=== PATIENT | male | born 1965 | race Caucasian/White ===

== ENCOUNTER 2019-11-16 09:47 | Emergency (ER) | payer OTHER ==
[2019-11-16] MEDS ORDERED: Sodium Chloride 0.9% 1000 ML 1,000 ML IV STA (09:56)
[2019-11-16] MEDS ORDERED: Sodium Chloride 0.9% 1000 ML 1,000 ML ONE (10:04)
[2019-11-16] MEDS ORDERED: Ativan 2 MG/1 ML VIAL IV ONE (10:07)
[2019-11-16] MEDS ORDERED: Ativan 2 MG/1 ML VIAL ONE (10:13)
--- NOTE | 2019-11-16 10:17 | XRAY ---
Indication: Short of breath. Dizziness. Comparison: None Portable chest demonstrates normal heart, lungs, and bony thorax.
--- NOTE | 2019-11-16 10:37 | ERPHSYRPT ---
- History of Present Illness Time Seen by Provider: 11/16/19 10:00 Patient Subjective Stated Complaint: Pt states "I do not go to the doctor very often. For the past few years I have been getting dizzy spells and having night sweats. For the past 3 days It has gotten really bad. I am weak and my belly hurts." Triage Nursing Assessment: Pt presented alert and oriented X 3, skin pwd Pt ambulates with an upright steady gait, able to speak in clear full sentences pt in no apparent respiratory distress. Pt anxious. Physician History: Patient is a 54-year-old male who presents with a multitude of signs and symptoms. He says that he has been having problems for 2 years worse the last 3 days. He says he has been dizzy associated with vertigo and spinning he has vi sual changes which get dark prior to syncopal episodes that occur fairly frequently he falls down estimates his loss of consciousness time to be several minutes. He complains of shortness of breath chest pain headache and abdominal pain he has had some nausea and vomiting recently his vision also becomes blurred at times. He is diagnosed as bipolar or manic depressive. Witnessed: unwitnessed Timing/Duration: day(s) (3) Precipitating Factors: blurred vision, lightheadedness, nausea Loss of Consciousness: prolonged (minutes) Charcter of event(s): collapsed Allergies/Adverse Reactions: No Known Drug Allergies Allergy (Verified 11/16/19 09:57) Hx Tetanus, Diphtheria Vaccination/Date Given: No Hx Influenza Vaccination/Date Given: No Hx Pneumococcal Vaccination/Date Given: No Immunizations Up to Date: Yes Travel Risk - International Travel Have you traveled outside of the country in past 3 weeks: No - Coronavirus Screening Are you exhibiting any of the following symptoms?: No Close contact with a COVID-19 positive Pt in past 14-21 Days: No - Past Medical History Pertinent Past Medical History: Yes Psycho-Social History: Anxiety, Depression - Past Surgical History Past Surgical History: Yes Gastrointestinal: Appendectomy - Social History Smoking Status: Former smoker Exposure to second hand smoke: Yes Drug Use: none Patient Lives Alone: Yes - Review of Systems Constitutional: Night Sweats Eyes: Vision Changes Ears, Nose, & Throat: No Symptoms Respiratory: Dyspnea, Dyspnea on Exertion (OLIVO) Cardiac: Chest Pain, Syncope Abdominal/Gastrointestinal: Abdominal Pain, Nausea, Vomiting Genitourinary Symptoms: No Dysuria Skin: No Rash Neurological: Dizziness, Headache, Irritability, Sensory Changes, Vertigo Psychological: Anxiety Endocrine: No Symptoms Hematologic/Lymphatic: No Symptoms Immunological/Allergic: No Symptoms All Other Systems: Reviewed and Negative Physical Exam - Nursing Vital Signs Nursing Vital Signs: Initial Vital Signs Temperature 65.3 F 11/16/19 09:47 Pulse Rate 80 11/16/19 09:47 Respiratory Rate 24 11/16/19 09:47 Blood Pressure 152/82 11/16/19 09:47 O2 Sat by Pulse Oximetry 100 11/16/19 09:47 Pain Scale Pain Intensity 1 - [place] Coma Scale Best Eye Response ([place]): (4) open spontaneously Best Verbal Response ([place]): (5) oriented Best Motor Response ([place]): (6) obeys commands [place] Total: 15 - Physical Exam General Appearance: mild distress, anxiety, other (Seems tremulous and extremely anxious) Eye Exam: bilateral eye: PERRL, EOMI Ears, Nose, Throat Exam: normal ENT inspection, pharynx normal, moist mucous membranes Neck Exam: normal inspection, non-tender, supple, full range of motion Respiratory: normal breath sounds, lungs clear, No chest tenderness, No respiratory distress Cardiovascular: regular rate/rhythm, capillary refill <2 sec, No murmur, No pulse deficit Gastrointestinal: soft, No tenderness, No distention, No mass Back Exam: normal inspection, normal range of motion, No CVA tenderness, No vertebral tenderness Extremity Exam: normal inspection, normal range of motion, pelvis stable, No tenderness Peripheral Pulses: carotid (R): 2+, carotid (L): 2+ Mental Status: alert, oriented x 3, 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, 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 Exam: normal speech, PERRL, No facial droop Coordination/Gait: normal finger to nose Motor/Sensory: no motor deficit, no sensory deficit, no pronator drift Skin Exam: normal color, warm, dry, No rash SpO2 Interpretation: normal SpO2: 100 O2 Delivery: Room Air - Course Nursing assessment & vital signs reviewed: Yes EKG Interpreted by Me: RATE (56), Sinus Rhythm, NORMAL AXIS, NORMAL INTERVALS, NORMAL QRS - Radiology Exams Chest X-ray Interpretation: Reviewed by me, Negative - CT Exams Chest CT Interpretation: Other (T scan of the head chest abdomen and pelvis are all basically free of any acute changes or findings.) Ordered Tests: Active Orders 24 hr Category Date Time Status EKG-ER Only STAT Care 11/16/19 09:52 Active IV Insertion STAT Care 11/16/19 09:52 Active ABDOMEN AND PELVIS W CONTRAST [CT] Stat Exams 11/16/19 09:57 Completed CHEST 1 VIEW (PORTABLE) Stat Exams 11/16/19 09:53 Completed CHEST WITH CONTRAST [CT] Stat Exams 11/16/19 09:57 Completed HEAD WITHOUT CONTRAST [CT] Stat Exams 11/16/19 09:57 Completed AMYLASE Stat Lab 11/16/19 09:52 Completed BLOOD CULTURE Stat Lab 11/16/19 10:35 Received CBC W DIFF Stat Lab 11/16/19 09:52 Completed CK-Creatinine Phosphokinase Stat Lab 11/16/19 09:52 Completed CMP Stat Lab 11/16/19 09:52 Completed D-DIMER QUANTITATIVE Stat Lab 11/16/19 09:52 Completed LIPASE Stat Lab 11/16/19 09:52 Completed Lactic Acid Stat Lab 11/16/19 09:52 Completed NT PRO BNP Stat Lab 11/16/19 09:52 Completed PROTIME WITH INR Stat Lab 11/16/19 09:52 Completed TROPONIN Q3H Lab 11/16/19 10:35 Completed TROPONIN Q3H Lab 11/16/19 13:00 Ordered TROPONIN Q3H Lab 11/16/19 16:00 Ordered TROPONIN Q3H Lab 11/16/19 19:00 Ordered TROPONIN Q3H Lab 11/16/19 22:00 Ordered UA W/RFX UR CULTURE Stat Lab 11/16/19 12:00 Ordered Medication Summary Discontinued Medications Generic Name Dose Route Start Last Admin Trade Name Jadenq PRN Reason Stop Dose Admin Sodium Chloride 1,000 mls @ 999 mls/hr 11/16/19 09:56 11/16/19 11:29 Sodium Chloride 0.9% 1000 Ml IV 11/16/19 10:56 Infused .Q1H1M STA Infusion Sodium Chloride Confirm 11/16/19 10:04 Sodium Chloride 0.9% 1000 Ml Administered 11/16/19 10:05 Dose 1,000 mls @ ud .ROUTE .STK-MED ONE Lorazepam 1 mg 11/16/19 10:07 11/16/19 10:14 Ativan 2 Mg/1 Ml Vial IV 11/16/19 10:08 1 mg STAT ONE Administration Lorazepam Confirm 11/16/19 10:13 Ativan 2 Mg/1 Ml Vial Administered 11/16/19 10:14 Dose 2 mg .ROUTE .STK-MED ONE Lab/Rad Data: Laboratory Result Diagrams 11/16/19 09:52 11/16/19 09:52 Laboratory Results 11/16/19 11/16/19 11/16/19 Range/Units 10:35 09:52 09:52 WBC (4.0-10.5) K/mm3 RBC (4.1-5.6) M/mm3 Hgb (12.5-18.0) gm/dl Hct (42-50) % MCV (78-100) fl MCH (26-32) pg MCHC (32-36) g/dl RDW (11.5-14.0) % Plt Count (150-450) K/mm3 MPV (7.5-11.0) fl Gran % (36.0-66.0) % Eos # (Auto) (0-0.5) Absolute Lymphs (auto) (1.0-4.6) Absolute Monos (auto) (0.0-1.3) Lymphocytes % (24.0-44.0) % Monocytes % (0.0-12.0) % Eosinophils % (0.00-5.0) % Basophils % (0.0-0.4) % Absolute Granulocytes (1.4-6.9) Basophils # (0-0.4) PT 11.0 (8.83-12.87) SECONDS INR 0.97 (0.8-3.0) D-Dimer 216 (215-500) ng/mL Sodium 138 (137-145) mmol/L Potassium 4.1 (3.5-5.1) mmol/L Chloride 103 (98-107) mmol/L Carbon Dioxide 27 (22-30) mmol/L Anion Gap 11.9 (5-15) MEQ/L BUN 10 (9-20) mg/dL Creatinine 1.05 (0.66-1.25) mg/dL Estimated GFR > 60.0 ML/MIN Glucose 106 (74-106) mg/dL Lactic Acid (0.4-2.0) Calcium 9.2 (8.4-10.2) mg/dL Total Bilirubin 0.70 (0.2-1.3) mg/dL AST 33 (17-59) U/L ALT 30 (0-50) U/L Alkaline Phosphatase 92 (38-126) U/L Creatine Kinase 65 (55-170) U/L Troponin I < 0.012 (0.000-0.034) ng/mL NT-Pro-B Natriuret Pep 28.7 (0-900) pg/mL Serum Total Protein 7.5 (6.3-8.2) g/dL Albumin 4.5 (3.5-5.0) g/dL Amylase 99 (30-110) U/L Lipase 166 (23-300) U/L 11/16/19 11/16/19 Range/Units 09:52 09:52 WBC 5.2 (4.0-10.5) K/mm3 RBC 5.28 (4.1-5.6) M/mm3 Hgb 16.7 (12.5-18.0) gm/dl Hct 49.1 (42-50) % MCV 93.0 (78-100) fl MCH 31.6 (26-32) pg MCHC 34.0 (32-36) g/dl RDW 12.3 (11.5-14.0) % Plt Count 185 (150-450) K/mm3 MPV 12.3 H (7.5-11.0) fl Gran % 48.7 (36.0-66.0) % Eos # (Auto) 0.18 (0-0.5) Absolute Lymphs (auto) 1.87 (1.0-4.6) Absolute Monos (auto) 0.60 (0.0-1.3) Lymphocytes % 36.0 (24.0-44.0) % Monocytes % 11.6 (0.0-12.0) % Eosinophils % 3.5 (0.00-5.0) % Basophils % 0.2 (0.0-0.4) % Absolute Granulocytes 2.53 (1.4-6.9) Basophils # 0.01 (0-0.4) PT (8.83-12.87) SECONDS INR (0.8-3.0) D-Dimer (215-500) ng/mL Sodium (137-145) mmol/L Potassium (3.5-5.1) mmol/L Chloride (98-107) mmol/L Carbon Dioxide (22-30) mmol/L Anion Gap (5-15) MEQ/L BUN (9-20) mg/dL Creatinine (0.66-1.25) mg/dL Estimated GFR ML/MIN Glucose (74-106) mg/dL Lactic Acid 1.7 (0.4-2.0) Calcium (8.4-10.2) mg/dL Total Bilirubin (0.2-1.3) mg/dL AST (17-59) U/L ALT (0-50) U/L Alkaline Phosphatase (38-126) U/L Creatine Kinase (55-170) U/L Troponin I (0.000-0.034) ng/mL NT-Pro-B Natriuret Pep (0-900) pg/mL Serum Total Protein (6.3-8.2) g/dL Albumin (3.5-5.0) g/dL Amylase (30-110) U/L Lipase (23-300) U/L - Progress Progress: improved - Departure Departure Disposition: Home Clinical Impression: Syncope, Anxiety Condition: Stable Critical Care Time: No Referrals: DOCTOR,NO FAMILY [Primary Care Provider] - Instructions: Syncope (Fainting) (DC), Anxiety, Adult (DC) Prescriptions: Paroxetine HCl [Paroxetine ER] 25 mg PO DAILY 30 Days #30 tab.er.24h
[2019-11-16 10:52] LABS: Absolute Neutrophil Ct (ANC) 2.53 (1.4-6.9); BASOPHIL % 0.2 % (0.0-0.4); Basophil (Absolute #) 0.01 (0-0.4); Eosinophil % 3.5 % (0.00-5.0); Eosinophil (Absolute #) 0.18 (0-0.5); Hematocrit 49.1 % (42-50); Hemoglobin 16.7 gm/dl (12.5-18.0); Lymphocyte (Absolute #) 1.87 (1.0-4.6); Mean Corpuscular Hemoglobin 31.6 pg (26-32); Mean Platelet Volume 12.3 fl (7.5-11.0); Monocytes % 11.6 % (0.0-12.0); Neutrophil % 48.7 % (36.0-66.0); Platelet Count 185 K/mm3 (150-450); Red Blood Count 5.28 M/mm3 (4.1-5.6); Red Cell Distribution Width 12.3 % (11.5-14.0); White Blood Count 5.2 K/mm3 (4.0-10.5)
[2019-11-16 10:58] LABS: INR 0.97 (0.8-3.0)
[2019-11-16 11:12] LABS: ALBUMIN 4.5 g/dL (3.5-5.0); ALKALINE PHOSPHATASE 92 U/L (38-126); AMYLASE 99 U/L (30-110); ANION GAP 11.9 MEQ/L (5-15); BLOOD UREA NITROGEN 10 mg/dL (9-20); CHLORIDE 103 mmol/L (98-107); CK-Creatinine Phosphokinase 65 U/L (55-170); Calcium 9.2 mg/dL (8.4-10.2); Carbon Dioxide 27 mmol/L (22-30); Creatinine 1 1.05 mg/dL (0.66-1.25); Glucose 106 mg/dL (74-106); LIPASE 166 U/L (23-300); NT PRO BNP 28.7 pg/mL (0-900); Potassium 4.1 mmol/L (3.5-5.1); SGOT/AST 33 U/L (17-59); SGPT/ALT 30 U/L (0-50); SODIUM 138 mmol/L (137-145); Total Protein 7.5 g/dL (6.3-8.2)
--- NOTE | 2019-11-16 12:06 | XRAY ---
Indication: Headache, dizziness, vertigo. Multiple contiguous images obtained through the head without contrast. Comparison: None Age-appropriate global atrophy and minimal periventricular degenerative micro-ischemia bilaterally. No acute intracranial hemorrhage, abnormal extra-axial fluid collection, or mass effect. Fourth ventricle is midline without hydrocephalus. Sue-white matter differentiation preserved. Bony calvarium intact. Visualized paranasal sinuses and mastoid air cells are clear. Impression: Atrophy and degenerative micro-ischemia within normal limits for patient's age. No acute intracranial abnormalities.
--- NOTE | 2019-11-16 12:08 | XRAY ---
Indication: Chest pain, short of breath, and weakness. Multiple contiguous axial images obtained through the chest using 100 cc Isovue 370 contrast. Comparison: None Lungs demonstrates mild bilateral dependent atelectasis and minimal bibasilar fibrosis/scarring. Remaining lungs clear. Heart is not enlarged. Aorta is normal in course and caliber. No pathologic mediastinal/hilar lymphadenopathy. Bony thorax intact with multilevel small Schmorl nodes. CT abdomen/pelvis reported separately. Impression: Negative CT chest with contrast exam with incidental findings.
--- NOTE | 2019-11-16 12:12 | XRAY ---
Indication: Abdomen pain, nausea, vomiting, diarrhea. Multiple contiguous axial images obtained through the abdomen and pelvis using 100 cc Isovue 370 contrast only. Comparison: None CT chest reported separately. The delayed images are degraded by respiration/motion artifact throughout. Noncontrasted stomach and bowel loops appear nonobstructed. Appendix not seen. No free fluid/air. Mild diffuse fatty liver. Remaining liver, gallbladder, pancreas, spleen, adrenal glands, kidneys, ureters, bladder, and aorta appear unremarkable. No pathologic retroperitoneal lymphadenopathy. Osseous structures intact. No ventral or inguinal hernias. Impression: 1. Respiration and motion artifact. 2. Mild fatty liver. 3. Remaining CT abdomen/pelvis with contrast exam is negative.
[2019-11-16 12:30] VITALS: BP 114/87; PULSE 80; O2SAT 98
[2019-11-16 13:01] LABS: Appearance CLEAR (CLEAR); Bilirubin NEGATIVE (NEGATIVE); Blood NEGATIVE Ery/ul (0-5); Glucose NEGATIVE (NEGATIVE); Ketones NEGATIVE (NEGATIVE); Leukocyte Esterase NEGATIVE (NEGATIVE); Nitrite NEGATIVE (NEGATIVE); Protein,Urine Dip NEGATIVE (Negative); Specific Gravity 1.011 (1.005-1.025); Urobilinogen NEGATIVE mg/dL (0-1)
== END 2019-11-16 13:00 | disposition home or self-care (01) ==
LOC: ED 09:47
DX: R55 Syncope and collapse (principal); F41.9 Anxiety disorder, unspecified; F32.9 Major depressive disorder, single episode, unspecified
CPT/HCPCS: 36000; 36415; 70450; 71045; 71260; 74177; 80053; 81001; 82150; 82550; 83605; 83690; 83880; 84484; 85025; 85379; 85610; 87040; 93005; 96360; 96374; 99284; J2060

== ENCOUNTER 2020-02-11 22:52 | Emergency (ER) | payer OTHER ==
[2020-02-11 23:17] LABS: Absolute Neutrophil Ct (ANC) 4.46 (1.4-6.9); BASOPHIL % 0.2 % (0.0-0.4); Basophil (Absolute #) 0.01 (0-0.4); Eosinophil (Absolute #) 0 (0-0.5); Hematocrit 39.9 % (42-50); Hemoglobin 13.8 gm/dl (12.5-18.0); Lymphocyte (Absolute #) 0.47 (1.0-4.6); Lymphocytes % 8.3 % (24.0-44.0); Mean Cell Volume 92.6 fl (78-100); Mean Corpuscular Hgb Concent. 34.6 g/dl (32-36); Mean Platelet Volume 10.6 fl (7.5-11.0); Monocyte (Absolute #) 0.74 (0.0-1.3); Neutrophil % 78.5 % (36.0-66.0); Platelet Count 155 K/mm3 (150-450); Red Blood Count 4.31 M/mm3 (4.1-5.6); White Blood Count 5.7 K/mm3 (4.0-10.5)
[2020-02-11 23:28] LABS: ALBUMIN 4.4 g/dL (3.5-5.0); ALKALINE PHOSPHATASE 69 U/L (38-126); ANION GAP 12.4 MEQ/L (5-15); BLOOD UREA NITROGEN 11 mg/dL (9-20); CHLORIDE 100 mmol/L (98-107); Calcium 8.5 mg/dL (8.4-10.2); Carbon Dioxide 23 mmol/L (22-30); Creatinine 1 0.95 mg/dL (0.66-1.25); EST GLOMERULAR FILTRATION RATE > 60.0 ML/MIN; Glucose 113 mg/dL (74-106); Potassium 3.6 mmol/L (3.5-5.1); SGOT/AST 34 U/L (17-59); SGPT/ALT 24 U/L (0-50); SODIUM 132 mmol/L (137-145); Total Protein 7.4 g/dL (6.3-8.2)
[2020-02-11 23:29] LABS: ACETAMINOPHEN < 10 ug/ml (10-30); ETHYL ALCOHOL < 10 mg/dL (0-10); SALICYLATE < 1.0 mg/dL (2-20)
--- NOTE | 2020-02-12 00:14 | ERPHSYRPT ---
- History of Present Illness Source: patient, police Patient Subjective Stated Complaint: Law Enforcement brought patient in R/T stated by law enforcement he had contacted them telling them he had 6-7 people after him earlier this evening. Patient noted then to be walking around [employer] in which employee contacted 911 in which law enforcement picked up patient and patient requested to be brought to ER for help. Law enforcement stated he had straw that fell from pocket and they tested it and it was positive for meth. Triage Nursing Assessment: Patient arrived to ER per law enforcement. Patient very jittery and very talkative. Patient appears anxious/nervous. Patient A/O times 4. Patient able to follow commands without difficulty. Patient pleasant yet does seem to be somewhat fearful of the people he says is after him. Upon arrival patient did ask to use restroom R/T he had been incontinent of bowel. Patient did clean self up and change clothes without difficulty. Lungs clear bilateral A/P throughout. Patient denies SOB/chest pain. Cap refill < 3 seconds. No S/S of respiratory distress noted. Skin turgor 4 seconds noted. Oral mucosa slightly dry. Patient stated he had been drinking a pint of rum this evening. No edema present. + radial and pedal pulses noted bilateral upper/lower extremities. 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 + BS times 4 quads. ABD soft, round, non-distended. When patient telling RN about the people in his window he appeared fearful. Patient did state he got them on video and that he showed the police. Police deny having any video. Patient denies any suicidal thoughts. Patient denies any homicidal thoughts. Patient denies N/V. Physician History: 54 yo wm brought in by police for paranoid/delusional behavior. Pt denies suicidal/homicidal ideations. 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 Pt admits to drinking rum and occasional marijuana. He denies trauma/fever. Timing/Duration: today Severity of Symptoms-Max: mild Severity of Symptoms-Current: mild Context related to: other (No new situational problems) Associated Symptoms: hallucinating, paranoid, No angry, No agitated, No anxiety, No confused, No depressed, No frustrated, No hostile, No impaired concentration, No ingestion, No injury, No insomnia, No suicidal ideation Previous symptoms: other (Unknown) Allergies/Adverse Reactions: No Known Drug Allergies Allergy (Verified 02/11/20 23:33) Home Medications: No Reportable Medications [No Reported Medications] 02/11/20 [History] Hx Tetanus, Diphtheria Vaccination/Date Given: No Hx Influenza Vaccination/Date Given: No Hx Pneumococcal Vaccination/Date Given: No Immunizations Up to Date: Yes Travel Risk - International Travel Have you traveled outside of the country in past 3 weeks: No - Coronavirus Screening Are you exhibiting any of the following symptoms?: No Close contact with a COVID-19 positive Pt in past 14-21 Days: No - Past Medical History Pertinent Past Medical History: Yes Neurological History: No Pertinent History ENT History: No Pertinent History Cardiac History: No Pertinent History Respiratory History: No Pertinent History Endocrine Medical History: No Pertinent History Musculoskeletal History: No Pertinent History GI Medical History: No Pertinent History History: No Pertinent History Psycho-Social History: Anxiety, Depression Male Reproductive Disorders: No Pertinent History - Past Surgical History Past Surgical History: Yes Neuro Surgical History: No Pertinent History Cardiac: No Pertinent History Respiratory: No Pertinent History Gastrointestinal: Appendectomy Genitourinary: No Pertinent History Musculoskeletal: No Pertinent History Male Surgical History: No Pertinent History - Social History Smoking Status: Former smoker Exposure to second hand smoke: Yes Drug Use: marijuana, methamphetamines Patient Lives Alone: Yes Significant Family History: no pertinent family hx - Review of Systems Constitutional: No Symptoms Eyes: No Symptoms Ears, Nose, & Throat: No Symptoms Respiratory: No Symptoms Cardiac: No Symptoms Abdominal/Gastrointestinal: No Symptoms Genitourinary Symptoms: No Symptoms Musculoskeletal: No Symptoms Skin: No Symptoms Neurological: No Symptoms Psychological: Alcohol Abuse, Drug Abuse, No Suicidal Ideations Endocrine: No Symptoms Hematologic/Lymphatic: No Symptoms Immunological/Allergic: No Symptoms - Nursing Vital Signs Nursing Vital Signs: Initial Vital Signs Temperature 98.3 F 02/11/20 23:00 Pulse Rate 109 H 02/11/20 23:00 Respiratory Rate 20 02/11/20 23:00 Blood Pressure 141/76 02/11/20 23:00 O2 Sat by Pulse Oximetry 99 02/11/20 23:00 Pain Scale Pain Intensity 0 - Physical Exam General Appearance: no apparent distress Eyes, Ears, Nose, Throat Exam: normal ENT inspection, TMs normal, pharynx normal Neck Exam: normal inspection, non-tender, supple, full range of motion, No Brudzinski, No Kernig's, No meningismus, No carotid bruit Respiratory Exam: normal breath sounds, lungs clear, airway intact, No respiratory distress Cardiovascular Exam: tachycardia (Mild) Gastrointestinal/Abdominal Exam: soft, normal bowel sounds, No tenderness Extremities Exam: normal inspection, normal range of motion, No evidence of injury Peripheral Pulses: carotid (R): 2+, carotid (L): 2+ Current Suicidality: denies suicide plan Neurological 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, 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, 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, responds to pain Appearance: disheveled Behavior/Eye Contact/Speech: alert & cooperative, cooperative, good eye contact, normal speech Thoughts/Hallucinations: paranoid, visual hallucinations Skin Exam: normal color, warm, dry SpO2 Interpretation: normal SpO2: 96 O2 Delivery: Room Air - CT Exams Head CT Interpretation: Tele-radiologist Report (NAD) Ordered Tests: Active Orders 24 hr Category Date Time Status HEAD WITHOUT CONTRAST [CT] Stat Exams 02/11/20 23:22 Taken ACETAMINOPHEN Stat Lab 02/11/20 23:10 Completed CBC W DIFF Stat Lab 02/11/20 23:10 Completed CMP Stat Lab 02/11/20 23:10 Completed CULTURE,URINE Stat Lab 02/11/20 23:31 Received ETHYL ALCOHOL Stat Lab 02/11/20 23:10 Completed SALICYLATE Stat Lab 02/11/20 23:10 Completed UA W/RFX UR CULTURE Stat Lab 02/11/20 23:31 Completed Urine Triage Profile Stat Lab 02/11/20 23:31 Completed Lab/Rad Data: Laboratory Result Diagrams 02/11/20 23:10 02/11/20 23:10 Laboratory Results 02/11/20 02/11/20 02/11/20 Range/Units 23:31 23:31 23:10 WBC (4.0-10.5) K/mm3 RBC (4.1-5.6) M/mm3 Hgb (12.5-18.0) gm/dl Hct (42-50) % MCV (78-100) fl MCH (26-32) pg MCHC (32-36) g/dl RDW (11.5-14.0) % Plt Count (150-450) K/mm3 MPV (7.5-11.0) fl Gran % (36.0-66.0) % Eos # (Auto) (0-0.5) Absolute Lymphs (auto) (1.0-4.6) Absolute Monos (auto) (0.0-1.3) Lymphocytes % (24.0-44.0) % Monocytes % (0.0-12.0) % Eosinophils % (0.00-5.0) % Basophils % (0.0-0.4) % Absolute Granulocytes (1.4-6.9) Basophils # (0-0.4) Sodium 132 L (137-145) mmol/L Potassium 3.6 (3.5-5.1) mmol/L Chloride 100 (98-107) mmol/L Carbon Dioxide 23 (22-30) mmol/L Anion Gap 12.4 (5-15) MEQ/L BUN 11 (9-20) mg/dL Creatinine 0.95 (0.66-1.25) mg/dL Estimated GFR > 60.0 ML/MIN Glucose 113 H (74-106) mg/dL Calcium 8.5 (8.4-10.2) mg/dL Total Bilirubin 1.00 (0.2-1.3) mg/dL AST 34 (17-59) U/L ALT 24 (0-50) U/L Alkaline Phosphatase 69 (38-126) U/L Serum Total Protein 7.4 (6.3-8.2) g/dL Albumin 4.4 (3.5-5.0) g/dL Urine Color YELLOW (YELLOW) Urine Appearance CLEAR (CLEAR) Urine pH 6.0 (5-6) Ur Specific [place] 1.025 (1.005-1.025) Urine Protein 30 (Negative) Urine Ketones MODERATE (NEGATIVE) Urine Blood MODERATE (0-5) Tin/ul Urine Nitrite NEGATIVE (NEGATIVE) Urine Bilirubin NEGATIVE (NEGATIVE) Urine Urobilinogen 2 (0-1) mg/dL Ur Leukocyte Esterase NEGATIVE (NEGATIVE) Urine WBC (Auto) 3-5 (0-5) /HPF Urine RBC (Auto) 6-10 (0-2) /HPF U Epithel Cells (Auto) NONE (FEW) /HPF Urine Bacteria (Auto) NONE (NEGATIVE) /HPF Urine Mucus (Auto) SLIGHT (NEGATIVE) /HPF Urine Culture Reflexed YES (NO) Urine Glucose 50 (NEGATIVE) mg/dL Salicylates < 1.0 L (2-20) mg/dL Urine Opiates Level NEGATIVE (NEGATIVE) Ur Methadone NEGATIVE (NEGATIVE) Acetaminophen < 10 L (10-30) ug/ml Urine Barbiturates NEGATIVE (NEGATIVE) Ur Phencyclidine (PCP) NEGATIVE (NEGATIVE) Urine Amphetamine POSITIVE (NEGATIVE) U Benzodiazepine Level NEGATIVE (NEGATIVE) Urine Cocaine NEGATIVE (NEGATIVE) Urine Marijuana (THC) POSITIVE (NEGATIVE) Ethyl Alcohol < 10 (0-10) mg/dL Slides for Path Review 02/11/20 Range/Units 23:10 WBC 5.7 (4.0-10.5) K/mm3 RBC 4.31 (4.1-5.6) M/mm3 Hgb 13.8 (12.5-18.0) gm/dl Hct 39.9 L (42-50) % MCV 92.6 (78-100) fl MCH 32.0 (26-32) pg MCHC 34.6 (32-36) g/dl RDW 13.0 (11.5-14.0) % Plt Count 155 (150-450) K/mm3 MPV 10.6 (7.5-11.0) fl Gran % 78.5 H (36.0-66.0) % Eos # (Auto) 0 (0-0.5) Absolute Lymphs (auto) 0.47 L (1.0-4.6) Absolute Monos (auto) 0.74 (0.0-1.3) Lymphocytes % 8.3 L (24.0-44.0) % Monocytes % 13.0 H (0.0-12.0) % Eosinophils % 0.0 (0.00-5.0) % Basophils % 0.2 (0.0-0.4) % Absolute Granulocytes 4.46 (1.4-6.9) Basophils # 0.01 (0-0.4) Sodium (137-145) mmol/L Potassium (3.5-5.1) mmol/L Chloride (98-107) mmol/L Carbon Dioxide (22-30) mmol/L Anion Gap (5-15) MEQ/L BUN (9-20) mg/dL Creatinine (0.66-1.25) mg/dL Estimated GFR ML/MIN Glucose (74-106) mg/dL Calcium (8.4-10.2) mg/dL Total Bilirubin (0.2-1.3) mg/dL AST (17-59) U/L ALT (0-50) U/L Alkaline Phosphatase (38-126) U/L Serum Total Protein (6.3-8.2) g/dL Albumin (3.5-5.0) g/dL Urine Color (YELLOW) Urine Appearance (CLEAR) Urine pH (5-6) Ur Specific [place] (1.005-1.025) Urine Protein (Negative) Urine Ketones (NEGATIVE) Urine Blood (0-5) Tin/ul Urine Nitrite (NEGATIVE) Urine Bilirubin (NEGATIVE) Urine Urobilinogen (0-1) mg/dL Ur Leukocyte Esterase (NEGATIVE) Urine WBC (Auto) (0-5) /HPF Urine RBC (Auto) (0-2) /HPF U Epithel Cells (Auto) (FEW) /HPF Urine Bacteria (Auto) (NEGATIVE) /HPF Urine Mucus (Auto) (NEGATIVE) /HPF Urine Culture Reflexed (NO) Urine Glucose (NEGATIVE) mg/dL Salicylates (2-20) mg/dL Urine Opiates Level (NEGATIVE) Ur Methadone (NEGATIVE) Acetaminophen (10-30) ug/ml Urine Barbiturates (NEGATIVE) Ur Phencyclidine (PCP) (NEGATIVE) Urine Amphetamine (NEGATIVE) U Benzodiazepine Level (NEGATIVE) Urine Cocaine (NEGATIVE) Urine Marijuana (THC) (NEGATIVE) Ethyl Alcohol (0-10) mg/dL Slides for Path Review YES - Progress Progress Note: 02/12/20 02:56 Consultation w [facility], wants pt to f/u as an outpt. Counseled pt/family regarding: lab results, need for follow-up - Departure Clinical Impression: Substance abuse Condition: Stable Critical Care Time: No Referrals: YUMIKO ETIENNE [Primary Care Provider] - Instructions: Polysubstance Abuse (DC) Additional Instructions: Follow up with the [facility] in AM([phone])
[2020-02-12 00:37] LABS: Slide Review 1 YES
[2020-02-12 00:50] LABS: Appearance CLEAR (CLEAR); Bilirubin NEGATIVE (NEGATIVE); Blood MODERATE Ery/ul (0-5); Glucose 50 mg/dL (NEGATIVE); Ketones MODERATE (NEGATIVE); Leukocyte Esterase NEGATIVE (NEGATIVE); Mucus SLIGHT /HPF (NEGATIVE); Nitrite NEGATIVE (NEGATIVE); Protein,Urine Dip 30 (Negative); Specific Gravity 1.025 (1.005-1.025); Urobilinogen 2 mg/dL (0-1)
[2020-02-12 00:51] LABS: Barbiturate,Urine NEGATIVE (NEGATIVE); Benzodiazepine,Urine NEGATIVE (NEGATIVE); Cocaine,Urine NEGATIVE (NEGATIVE); Methadone,Urine NEGATIVE (NEGATIVE); Opiate,Urine NEGATIVE (NEGATIVE); PCP,Urine NEGATIVE (NEGATIVE); THC,Urine POSITIVE (NEGATIVE)
[2020-02-12 01:14] LABS: Amphetamine,Urine POSITIVE (NEGATIVE)
[2020-02-12 03:05] VITALS: BP 92/49; PULSE 82
[2020-02-12 04:35] VITALS: O2SAT 96
--- NOTE | 2020-02-12 08:50 | XRAY ---
Indication: Mental status change. Multiple contiguous axial images obtained through the head without contrast. Comparison: November 16, 2019. Stable age-appropriate global atrophy and minimal periventricular degenerative micro-ischemia. No acute intracranial hemorrhage, abnormal extra-axial fluid collection, or mass effect. Fourth ventricle is midline without hydrocephalus. Sue-white matter differentiation preserved. Bony calvarium intact. Visualized paranasal sinuses and mastoid air cells are clear. Impression: Stable normal aging brain. No new/acute intracranial abnormalities. Comment: Preliminary interpretation was made by [facility]. No critical discrepancy.
== END 2020-02-12 03:03 | disposition home or self-care (01) ==
LOC: ED 22:52
DX: F19.10 Other psychoactive substance abuse, uncomplicated (principal)
CPT/HCPCS: 36415; 70450; 80053; 80307; 81001; 85025; 87086; 99284; G0480; Q3014